=== PATIENT | female | born 1965 | race Caucasian/White ===

== ENCOUNTER 2017-01-08 12:45 | Emergency (ER) | payer OTHER ==
[~2017-01-08 12:45] MED LIST: ALEVE220 M1 PO; BENADRYL ALLERG25 MG PO; CHOLESTYRAMIN4 G/PKT PO; CHOLESTYRAMINE L4 GM PO; HYDROCODONE/APA1 TAB PO; KEFLEX500 M1 PO; OXYCODONE/APAP PO; PERCOCET 7.5-31 EACH PO; TAMOXIFEN CITRA20 M1 PO
[2017-01-08] MEDS ORDERED: MULTIVITAMINS1 EAC6 PO (13:01)
[2017-01-08] MEDS ORDERED: XARELTO20 M1 PO (13:01)
== END 2017-01-08 15:00 ==
LOC: EDMED 12:45
DX: S06.0X0A Concussion without loss of consciousness, initial encounter (principal); Z86.718 Personal history of other venous thrombosis and embolism; Z85.3 Personal history of malignant neoplasm of breast; Z79.899 Other long term (current) drug therapy; Z90.13 Acquired absence of bilateral breasts and nipples; Z98.890 Other specified postprocedural states; V49.40XA Driver injured in collision with unspecified motor vehicles in traffic accident, initial encounter; Y92.410 Unspecified street and highway as the place of occurrence of the external cause